=== PATIENT | male | born 1970 | race Hispanic/Latino ===

== ENCOUNTER 2021-07-08 15:24 | Emergency (ER) | payer SELFPAY ==
[~2021-07-08] VITALS: Ht 167.6 cm; Wt 77.1 kg
[2021-07-08 16:44] LABS: BASOPHILS % (AUTO) 0.2 % (0.0-5.0); HEMATOCRIT 47.3 % (42-54); LYMPHOCYTES % (AUTO) 4.2 % (21.0-51.0); MEAN CORPUSCULAR HEMOGLOBIN 30.6 pg (27.0-33.0); MEAN CORPUSCULAR HGB CONC 34.2 g/dL (32.0-36.0); MEAN CORPUSCULAR VOLUME 89.4 fL (79-99); MONOCYTES % (AUTO) 3.9 % (3.0-13.0); NEUTROPHILS % (AUTO) 91.1 % (40.0-77.0); PLATELET COUNT (AUTO) 167 K/uL (130-400); RED BLOOD CELL COUNT(AUTO) 5.29 MIL/uL (4.50-6.20); RED CELL DISTRIBUTION WIDTH 12.4 % (11.0-15.5); WHITE BLOOD COUNT (AUTO) 17.6 K/uL (4.8-10.8)
[2021-07-08 16:54] LABS: CREATININE 1.6 mg/dL (0.5-1.5); POTASSIUM 3.7 mmol/L (3.5-5.1)
[2021-07-08 16:58] LABS: ALBUMIN 3.2 g/dL (3.5-5.0); BILIRUBIN,TOTAL 0.9 mg/dL (0.2-1.0); TOTAL PROTEIN, SERUM 9.1 g/dL (6.0-8.3)
[2021-07-08] MEDS ORDERED: 0.9%NACL 1000ML 1,000 ML IV ONE (17:00)
[2021-07-08] MEDS ORDERED: ONDANSETRON 4MG INJ IVP ONE (17:00)
[2021-07-08] MEDS ORDERED: MORPHINE 2 MG SYG IVP ONE (17:00)
[2021-07-08] MEDS ORDERED: IOHEXOL-350 75 ML VIAL IV ONE (17:19)
[2021-07-08 18:27] VITALS: BP 133/69
[2021-07-08] MEDS ORDERED: ONDA-104 PO (18:27)
[2021-07-08] MEDS ORDERED: D-ME118S47 PO (18:27)
[2021-07-08] MEDS ORDERED: ACET-66 PO (18:27)
== END 2021-07-08 18:30 | disposition home or self-care (01) ==
LOC: EDH 15:24
DX: U07.1 COVID-19 (principal); E86.0 Dehydration
CPT/HCPCS: 36415; 80053; 83605; 83690; 84484; 85025; 87635; 96361; 96374; 96375; 99284; C9803; J2405; J7030; Q9967